=== PATIENT | female | born 1990 | race Caucasian/White ===

== ENCOUNTER 2018-09-14 18:25 | Day surgery (SDC) | payer OTHER ==
[2018-09-14 19:11] VITALS: BMI 32.9
[2018-09-14 20:05] LABS: Bilirubin Negative (Negative); Blood, Urine Negative (Negative); Clarity CLEAR (Clear); Glucose, Urine (Dipstick) Negative (Negative); Leukocyte Negative (Negative); Nitrite Negative (Negative); Protein, Urine (Dipstick) Negative (Neg-Trace); Specific Gravity, Urine 1.005 (1.002-1.036); Urobilinogen 0.2 mg/dL (0.2-1.0); pH, Urine 6.5 (5.0-9.0)
[2018-09-14 20:07] LABS: Bacteria/HPF Rare-Few HPF (None Seen); Hyaline Casts/LPF 0-3 HYALINE CAST LPF (0-3 Hyaline); Pathc Cast-AUWi Flag 0.27 (0-2.49); Squamous Epithelial 0-3 HPF (0-3)
--- NOTE | 2018-09-14 22:06 | PDOC.LDHP ---
Labor and Delivery H&P Chief complaint: other (tachycardia) HPI: 28 y/o G1 at 31w4d, patient of Dr. Hathaway, presents for evaluation of tachycardia while working. 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 They put a pulse ox on and noted her heart rate to be in the 120-130s. Has mild SOB. Denies VB, LOF, ctx, or decreased FM. ROS neg for HEENT, cv, pulm, gi, gu, neuro, psych, skin, musculoskeletal or constitutional symptoms other than mentioned above. OB History Details: First baby Current complications: none Past Medical History: ASCUS pap, +HR HPV Current medications: pre-arik vitamins Previous surgical history: other (tonsillectomy) Allergies/Adverse Reactions: Allergies Allergy/AdvReac Type Severity Reaction Status Date / Time No Known Allergies Allergy Unverified 09/14/18 19:07 Social history: none - Physical Exam Vital signs reviewed and normal: yes General: NAD, resting Heart: RRR Lungs: CTAB (no wheezes, rales, or rhonchi. Good air flow bilaterally.) Abdomen: gravid Extremeties: trace edema FHT: category 1 (135s, mod variability, + accels, no decels) [place] contractions every: none - Assessment 28 y/o G1 at 31w4d with normal lung exam, HR now in 90s. O2 saturation 99-100% on room air. status reassuring with reactive NST. - Plan -: D/c home with precautions. Per Dr. Hathaway, will take off tomorrow from work and follow up in clinic on Wednesday.
== END 2018-09-14 20:25 | disposition home or self-care (01) ==
LOC: L&D/OP 18:25
PROVIDERS: ATTEND Obstetrics & Gynecology
DX: O99.89 Other specified diseases and conditions complicating pregnancy, childbirth and the puerperium (principal); R00.0 Tachycardia, unspecified; Z79.899 Other long term (current) drug therapy; Z3A.31 31 weeks gestation of pregnancy
CPT/HCPCS: 81001; 99283

== ENCOUNTER 2018-10-24 19:08 | Inpatient (IN) | payer OTHER ==
[2018-10-24] MEDS: Lactated Ringer's 1,000 ML IV SCH (19:45)
[2018-10-24] MEDS ORDERED: Docusate 100 MG CAP PO PRN (19:50)
[2018-10-24] MEDS ORDERED: Diphenoxylate HCl/Atropine Tablet PO PRN ×2 (19:50)
[2018-10-24] MEDS ORDERED: Misoprostol 200 MCG TAB PR PRN (19:50)
[2018-10-24] MEDS ORDERED: Promethazine HCl 25 MG/ML VIAL IM PRN (19:50)
[2018-10-24] MEDS ORDERED: NS / Oxytocin 40 units/1000ml 1,000 ML IV PRN (19:50)
[2018-10-24] MEDS ORDERED: Lidocaine 1% (PF) 30 ML VIAL SC PRN (19:50)
[2018-10-24] MEDS ORDERED: NS w/ Oxytocin 10 units 500 ML IV SCH (19:50)
[2018-10-24] MEDS ORDERED: Acetaminophen 500 MG TAB PO PRN (19:50)
[2018-10-24] MEDS ORDERED: Ibuprofen 800 MG TAB PO PRN (19:50)
[2018-10-24] MEDS ORDERED: HYDROcodone/Acetaminophen 5/325 mg Tablet PO PRN ×2 (19:50)
[2018-10-24] MEDS ORDERED: Butorphanol Tartrate 1 MG/ML VIAL SLOW IVP PRN (19:50)
[2018-10-24] MEDS ORDERED: Zolpidem Tartrate 5 MG TAB PO PRN (19:50)
[2018-10-24] MEDS ORDERED: Ondansetron PF 4 MG/2 ML Vial IVP PRN (19:50)
[2018-10-24 19:55] VITALS: BMI 34.9
[2018-10-24 20:05] LABS: Mean Corpuscular HGB CONC 34.7 g/dL (32.0-36.0); Mean Corpuscular Volume 83.5 fL (78.0-98.0); Mean Platelet Volume 9.7 fL (7.4-10.4); Platelet Count 181 thou/uL (130-400); RBC Distribution Width 15.1 % (11.5-14.5); Red Blood Cell (RBC) Count 3.78 mill/uL (4.20-5.40); White Blood Cell (WBC) Count 8.6 thou/uL (4.8-10.8)
[2018-10-24] MEDS: Misoprostol 100 MCG TAB VAG SCH ×2 (20:16→23:43)
[2018-10-24 20:43] LABS: Syphilis Antibody Nonreactive (Nonreactive); Syphilis Antibody Index 0.06 S/CO (<1.00 Non-Reactive)
[2018-10-24 23:37] LABS: HBSAg Index 0.35 S/CO (0-0.99); Hep B Surf Ag Non-Reactive S/CO (NonReactive)
[2018-10-25] MEDS: Lactated Ringer's 1,000 ML IV SCH ×3 (04:28→22:30)
[2018-10-25] MEDS ORDERED: Fentanyl 4 mcg/Bup 0.1% Cadd 100 ML ONE ×2 (05:23→13:54)
[2018-10-25] MEDS ORDERED: Lactated Ringer's 500 ML IV PRN (06:53)
[2018-10-25] MEDS ORDERED: Naloxone HCl 0.4 mg/ml Vial IVP PRN ×2 (06:53)
[2018-10-25] MEDS ORDERED: Ondansetron PF 4 MG/2 ML Vial IVP PRN (06:53)
[2018-10-25] MEDS ORDERED: Eucerin (Mineral Oil/Petrolatum,White) 30 gm Jar TOP PRN (06:53)
[2018-10-25] MEDS ORDERED: Promethazine HCl 25 MG/ML VIAL IM PRN (06:53)
[2018-10-25] MEDS ORDERED: ePHEDrine/0.9% NaCl/PF SYRINGE 50 mg/10 ml SLOW IVP PRN (06:53)
[2018-10-25] MEDS ORDERED: diphenhydrAMINE 50 MG/ML VIAL IVP PRN (06:53)
[2018-10-25] MEDS ORDERED: Communication Order-Pharmacy FS SCH (07:00)
[2018-10-25] MEDS ORDERED: Acetaminophen 325 MG TAB PO PRN (07:00)
[2018-10-25] MEDS ORDERED: Fentanyl 4 mcg/Bupivacaine 0.1% Cassette 100 ML EPIDURAL SCH (07:00)
[2018-10-25 18:12] LABS: Actual Bicarbonate (HCO3a) 22.7 mEq/L (22-28); Actual Bicarbonate (HCO3v) 21 mEq/L (22-28); Base Excess -5.5 mEq/L (-2.0 to +3.0); Base Excess (BEa) -6.1 mEq/L (-2.0 to +3.0); pH (Cord, venous) 7.29 (7.32-7.43)
[2018-10-25] MEDS: Misoprostol 100 MCG TAB VAG SCH ×3 (22:29→22:32)
[2018-10-26] MEDS: Lactated Ringer's 1,000 ML IV SCH ×2 (02:00→15:25)
[2018-10-26] MEDS: Misoprostol 100 MCG TAB VAG SCH ×2 (02:00→09:30)
[2018-10-26] MEDS: Ibuprofen 800 MG TAB PO SCH ×3 (02:06→20:36)
[2018-10-26] MEDS ORDERED: Benzocaine-Menthol 82.5 ML CAN TOP PRN (02:49)
[2018-10-26] MEDS ORDERED: Triple Antibiotic Oint 1 GM Packet TOP SCH (15:00)
[2018-10-26] MEDS ORDERED: Bupivacaine/Epinephrine 0.25% 30 ML VIAL ONE (18:00)
[2018-10-27] MEDS: Ibuprofen 800 MG TAB PO SCH ×2 (06:58→14:24)
[2018-10-27 08:20] VITALS: BP 104/62; TEMP 97.9
[2018-10-27] MEDS: Misoprostol 100 MCG TAB VAG SCH ×3 (12:01→12:03)
[2018-10-27] MEDS: Lactated Ringer's 1,000 ML IV SCH (12:04)
[2018-10-27] MEDS ORDERED: Measles/Mumps/Rubella 10 MCG/0.5 ML VIAL SC ONE (16:30)
== END 2018-10-27 16:50 | disposition home or self-care (01) | DRG 807 ==
LOC: L&D 19:08 → 3SW 10-25 21:41 → EDSTATUS 11-10 11:27
PROVIDERS: ADMIT Obstetrics & Gynecology; ATTEND Obstetrics & Gynecology
PROC: 3E0P7VZ Introduction of Hormone into Female Reproductive, Via Natural or Artificial Opening (ICD-10-PCS; 2018-10-24)
PROC: 10D07Z6 Extraction of Products of Conception, Vacuum, Via Natural or Artificial Opening (ICD-10-PCS; principal; 2018-10-25)
PROC: 0W8NXZZ Division of Female Perineum, External Approach (ICD-10-PCS; 2018-10-25)
DX: O41.03X0 Oligohydramnios, third trimester, not applicable or unspecified (principal); Z37.0 Single live birth; O43.893 Other placental disorders, third trimester; O26.843 Uterine size-date discrepancy, third trimester; O76 Abnormality in fetal heart rate and rhythm complicating labor and delivery; O75.89 Other specified complications of labor and delivery; O32.8XX0 Maternal care for other malpresentation of fetus, not applicable or unspecified; O69.2XX0 Labor and delivery complicated by other cord entanglement, with compression, not applicable or unspecified; Z23 Encounter for immunization; Z3A.39 39 weeks gestation of pregnancy
CPT/HCPCS: 36415; 51702; 82805; 85027; 86780; 86850; 86900; 86901; 87340; J2001; J2405; J2590

== ENCOUNTER 2019-05-15 13:04 | Emergency (ER) | payer OTHER ==
[2019-05-15 14:22] LABS: HBSAg Index 0.24 S/CO (0-0.99); HIV (1/2) Antibody/Antigen Non-Reactive (NonReactive); HIV 1/2 INDEX 0.09 S/CO (<1.00); Hep B Surf Ag Non-Reactive S/CO (NonReactive); Hep C IgG Ab Non-Reactive (NonReactive); Hep C Index 0.13 S/CO (0-0.79)
== END 2019-05-15 14:34 | disposition home or self-care (01) ==
LOC: ERS 13:04
DX: Z77.21 Contact with and (suspected) exposure to potentially hazardous body fluids (principal)
CPT/HCPCS: 86803; 87340; 87389; 99283

== ENCOUNTER 2019-06-27 11:55 | Emergency (ER) | payer OTHER ==
[2019-06-27 13:05] LABS: HIV (1/2) Antibody/Antigen Non-Reactive (NonReactive); HIV 1/2 INDEX 0.13 S/CO (<1.00); Hep C IgG Ab Non-Reactive (NonReactive); Hep C Index 0.16 S/CO (0-0.79)
[2019-06-27 13:12] LABS: HBSAB Concentration 15.36 mIU/mL; Hep B Surf AB Reactive (NonReactive)
== END 2019-06-27 13:30 | disposition home or self-care (01) ==
LOC: ERS 11:55
DX: Z77.21 Contact with and (suspected) exposure to potentially hazardous body fluids (principal)
CPT/HCPCS: 86706; 86803; 87389; 99283

== ENCOUNTER 2020-07-02 09:13 | Inpatient (IN) | payer BC, OTHER, SELFPAY ==
[2020-07-02] MEDS ORDERED: Acetaminophen 500 MG TAB PO PRN (09:56)
[2020-07-02] MEDS ORDERED: Butorphanol Tartrate 1 MG/ML VIAL SLOW IVP PRN (09:56)
[2020-07-02] MEDS ORDERED: Promethazine HCl 25 MG/ML VIAL IM PRN ×2 (09:56→11:53)
[2020-07-02] MEDS ORDERED: Misoprostol 200 MCG TAB PR PRN (09:56)
[2020-07-02] MEDS ORDERED: Ibuprofen 800 MG TAB PO PRN (09:56)
[2020-07-02] MEDS ORDERED: HYDROcodone/Acetaminophen 5/325 mg Tablet PO PRN ×4 (09:56→21:32)
[2020-07-02] MEDS ORDERED: Lidocaine 1% (PF) 30 ML VIAL SC PRN (09:56)
[2020-07-02] MEDS ORDERED: NS w/ Oxytocin 30 units 500 ML IV PRN (09:56)
[2020-07-02] MEDS ORDERED: Docusate 100 MG CAP PO PRN (09:56)
[2020-07-02] MEDS ORDERED: Ondansetron PF 4 MG/2 ML Vial IVP PRN ×3 (09:56→21:32)
[2020-07-02] MEDS ORDERED: Diphenoxylate HCl/Atropine Tablet PO PRN ×2 (09:56)
[2020-07-02] MEDS ORDERED: hydrALAZINE 20 MG/ML VIAL SLOW IVP PRN ×2 (09:56→21:32)
[2020-07-02] MEDS: Lactated Ringer's 1,000 ML IV SCH ×3 (10:00→17:12)
[2020-07-02 10:24] VITALS: BMI 33.9
[2020-07-02 10:24] LABS: Hemoglobin 12.6 g/dL (12.0-16.0); Mean Corpuscular Hemoglobin 30.5 pg (27.0-31.0); Mean Corpuscular Volume 89.6 fL (78.0-98.0); Mean Platelet Volume 9.8 fL (7.4-10.4); Platelet Count 148 thou/uL (130-400); RBC Distribution Width 15.2 % (11.5-14.5); Red Blood Cell (RBC) Count 4.14 mill/uL (4.20-5.40); White Blood Cell (WBC) Count 8.4 thou/uL (4.8-10.8)
[2020-07-02 10:58] LABS: HBSAg Index 0.22 S/CO (0-0.99); Hep B Surf Ag Non-Reactive S/CO (NonReactive)
[2020-07-02] MEDS ORDERED: Fentanyl 4 mcg/Bup 0.1% Cadd 100 ML ONE ×2 (11:01→16:17)
[2020-07-02 11:02] LABS: Syphilis Antibody Nonreactive (Nonreactive); Syphilis Antibody Index 0.04 S/CO (<1.00 Non-Reactive)
[2020-07-02] MEDS ORDERED: Naloxone HCl 0.4 mg/ml Vial IVP PRN ×2 (11:53)
[2020-07-02] MEDS ORDERED: ePHEDrine 50 MG/ML VIAL SLOW IVP PRN (11:53)
[2020-07-02] MEDS ORDERED: diphenhydrAMINE 50 MG/ML VIAL IVP PRN (11:53)
[2020-07-02] MEDS ORDERED: Lactated Ringer's 500 ML IV PRN (11:53)
[2020-07-02] MEDS ORDERED: Acetaminophen 325 MG TAB PO PRN ×2 (11:53→21:33)
[2020-07-02] MEDS ORDERED: Fentanyl 4 mcg/Bupivacaine 0.1% Cassette 100 ML EPIDURAL SCH (12:00)
[2020-07-02] MEDS ORDERED: Communication Order-Pharmacy FS SCH (12:00)
[2020-07-02] MEDS ORDERED: Bupivacaine HCl 0.25%/Epi 0.0005/PF 10 ML VIAL FS ONE (12:15)
[2020-07-02] MEDS ORDERED: Bupivacaine 0.25% HCL 30 ML VIAL ONE (12:15)
[2020-07-02 14:19] LABS: SARS-CoV-2 PCR by NAA Not Detected (NotDetected)
[2020-07-02] MEDS ORDERED: Zolpidem Tartrate 5 MG TAB PO PRN (21:32)
[2020-07-02] MEDS ORDERED: Milk Of Magnesia 30 ML UDCUP PO PRN (21:32)
[2020-07-02] MEDS ORDERED: Misoprostol 200 MCG TAB VAG PRN (21:32)
[2020-07-02] MEDS ORDERED: diphenhydrAMINE 25 MG CAP PO PRN (21:32)
[2020-07-02] MEDS ORDERED: Lanolin Ointment 7 GM TUBE TOP PRN (21:32)
[2020-07-02] MEDS ORDERED: Benzocaine-Menthol 82.5 ML CAN TOP PRN (21:32)
[2020-07-02] MEDS ORDERED: Preparation H Ointment 28 GM TUBE PR PRN (21:32)
[2020-07-02] MEDS ORDERED: Bisacodyl 10 MG SUPP PR PRN (21:32)
[2020-07-02] MEDS ORDERED: NS / Oxytocin 40 units/1000ml 1,000 ML IV SCH (21:45)
[2020-07-02] MEDS ORDERED: NS w/ Oxytocin 30 units 500 ML IV SCH (21:45)
[2020-07-03] MEDS: Ibuprofen 800 MG TAB PO SCH ×3 (06:26→21:18)
[2020-07-03] MEDS: Docusate Calcium (SURFAK) 240 MG CAP PO SCH ×2 (08:43→21:18)
[2020-07-03] MEDS: Prenatal Vitamin 1 TAB PO SCH (08:43)
[2020-07-03] MEDS: Ferrous Sulfate 325 MG TAB PO SCH ×2 (08:44→15:09)
[2020-07-03] MEDS ORDERED: Adacel (T-DAP) 0.5 ML SYRINGE IM ONE (09:00)
[2020-07-03 09:09] LABS: Hemoglobin 11.1 g/dL (12.0-16.0); Mean Corpuscular Hemoglobin 29.9 pg (27.0-31.0); Mean Corpuscular Volume 90.7 fL (78.0-98.0); Mean Platelet Volume 9.4 fL (7.4-10.4); Platelet Count 148 thou/uL (130-400); RBC Distribution Width 15.5 % (11.5-14.5); Red Blood Cell (RBC) Count 3.72 mill/uL (4.20-5.40); White Blood Cell (WBC) Count 13.4 thou/uL (4.8-10.8)
[2020-07-04] MEDS: Ibuprofen 800 MG TAB PO SCH ×2 (06:28→14:43)
[2020-07-04 08:31] VITALS: BP 90/52; TEMP 97.8
[2020-07-04] MEDS: Docusate Calcium (SURFAK) 240 MG CAP PO SCH (09:12)
[2020-07-04] MEDS: Prenatal Vitamin 1 TAB PO SCH (09:12)
[2020-07-04] MEDS: Ferrous Sulfate 325 MG TAB PO SCH (09:13)
== END 2020-07-04 17:46 | disposition home or self-care (01) | DRG 807 ==
LOC: L&D 09:13 → 3SW 23:33
PROVIDERS: ADMIT Obstetrics & Gynecology; ATTEND Obstetrics & Gynecology
PROC: 10E0XZZ Delivery of Products of Conception, External Approach (ICD-10-PCS; principal; 2020-07-02)
PROC: 0KQM0ZZ Repair Perineum Muscle, Open Approach (ICD-10-PCS; 2020-07-02)
DX: O98.52 Other viral diseases complicating childbirth (principal); Z37.0 Single live birth; B00.9 Herpesviral infection, unspecified; Z3A.39 39 weeks gestation of pregnancy; O70.1 Second degree perineal laceration during delivery
CPT/HCPCS: 36415; 51702; 85027; 86780; 86850; 86900; 86901; 87340; 87635; J2405; J2550; J2590; S0020; U0003; U0005

== ENCOUNTER 2020-11-13 11:34 | Emergency (ER) | payer BC ==
[2020-11-13] MEDS ORDERED: Dexamethasone 10 MG/ML VIAL ONE (12:10)
[2020-11-13 12:12] LABS: #Basophils 0.1 thou/uL (0.0-0.2); #Lymphocytes 0.6 thou/uL (1.20-3.40); #Monocytes 0.3 thou/uL (0.11-0.59); #Neutrophils 6.2 thou/uL (1.40-6.50); %Basophils 0.8 % (0.0-1.0); %Eosinophils 0.2 % (0.0-10.0); %Monocytes 3.6 % (0.0-10.0); %Neutrophils 87.5 % (42.0-75.0); Hemoglobin 13.4 g/dL (12.0-16.0); Mean Corpuscular HGB CONC 33.3 g/dL (32.0-36.0); Mean Corpuscular Hemoglobin 29.9 pg (27.0-31.0); Mean Platelet Volume 8.7 fL (7.4-10.4); Platelet Count 183 thou/uL (130-400); Red Blood Cell (RBC) Count 4.49 mill/uL (4.20-5.40); White Blood Cell (WBC) Count 7.1 thou/uL (4.8-10.8)
[2020-11-13 12:35] LABS: ALT (SGPT) 15 U/L (8-55); AST (SGOT) 16 U/L (5-34); Albumin 4.1 g/dL (3.5-5.0); Alkaline Phosphatase 67 U/L (40-110); Anion Gap 14 mmol/L (10-20); BUN (Urea Nitrogen) 9 mg/dL (7.0-18.7); Bilirubin, Total 0.2 mg/dL (0.2-1.2); Calc. Creatinine Clearance 0 mL/min (70-130); Calcium 8.7 mg/dL (7.8-10.44); Carbon Dioxide 22 mmol/L (22-29); Chloride 105 mmol/L (98-107); Globulin 3.1 g/dL (2.4-3.5); Glucose 106 mg/dL (70-105); Potassium 3.2 mmol/L (3.5-5.1); Protein, Total 7.2 g/dL (6.0-8.3); Sodium 138 mmol/L (136-145)
[2020-11-13] MEDS ORDERED: Potassium Chloride 20 MEQ TAB ONE (12:51)
== END 2020-11-13 13:40 | disposition home or self-care (01) ==
LOC: ERS 11:34
DX: U07.1 COVID-19 (principal); E87.6 Hypokalemia
CPT/HCPCS: 71045; 80053; 83605; 84484; 85025; 87040; 93005; 96374; J1100

== ENCOUNTER 2020-11-15 11:13 | Emergency (ER) | payer BC ==
[2020-11-15] MEDS ORDERED: Ketorolac Tromethamine 30 MG/ML VIAL ONE (11:36)
[2020-11-15 11:43] LABS: #Basophils 0.1 thou/uL (0.0-0.2); #Lymphocytes 0.7 thou/uL (1.20-3.40); #Monocytes 0.3 thou/uL (0.11-0.59); #Neutrophils 6.3 thou/uL (1.40-6.50); %Basophils 1.3 % (0.0-1.0); %Eosinophils 0.2 % (0.0-10.0); %Lymphocytes 9.4 % (21.0-51.0); %Monocytes 3.4 % (0.0-10.0); %Neutrophils 85.8 % (42.0-75.0); Hemoglobin 13.2 g/dL (12.0-16.0); Mean Corpuscular HGB CONC 32.4 g/dL (32.0-36.0); Mean Corpuscular Hemoglobin 29.4 pg (27.0-31.0); Mean Corpuscular Volume 90.8 fL (78.0-98.0); Mean Platelet Volume 8.8 fL (7.4-10.4); Platelet Count 181 thou/uL (130-400); White Blood Cell (WBC) Count 7.3 thou/uL (4.8-10.8)
[2020-11-15 11:53] LABS: BHCG - Serum Negative (NEGATIVE); Pregs Control Background? CLEAR/WHITE (CLR/WHITE); Pregs Control Bar Appear? YES (CONTROL BAR)
[2020-11-15 12:12] LABS: ALT (SGPT) 14 U/L (8-55); AST (SGOT) 18 U/L (5-34); Albumin 3.9 g/dL (3.5-5.0); Alkaline Phosphatase 59 U/L (40-110); Anion Gap 14 mmol/L (10-20); BUN (Urea Nitrogen) 10 mg/dL (7.0-18.7); Bilirubin, Total 0.4 mg/dL (0.2-1.2); Calc. Creatinine Clearance 0 mL/min (70-130); Calcium 9.2 mg/dL (7.8-10.44); Carbon Dioxide 26 mmol/L (22-29); Chloride 104 mmol/L (98-107); Globulin 3.2 g/dL (2.4-3.5); Glucose 123 mg/dL (70-105); Potassium 3.3 mmol/L (3.5-5.1); Protein, Total 7.1 g/dL (6.0-8.3); Sodium 141 mmol/L (136-145)
== END 2020-11-15 13:59 | disposition home or self-care (01) ==
LOC: ERS 11:13
DX: U07.1 COVID-19 (principal)
CPT/HCPCS: 80053; 83605; 84703; 85025; 87040; 93005; 96374; J1885